=== PATIENT | male | born 1995 ===

== ENCOUNTER 2024-05-29 18:08 | Inpatient (IN) | payer SELFPAY ==
[~2024-05-29] VITALS: Ht 185.4 cm; Wt 71.4 kg
[2024-05-29] VITALS (104 sets, daily range): BP systolic 109–123; BP diastolic 73–84; PULSE 54–72; TEMP 98.7; O2SAT 38–100
--- NOTE | 2024-05-29 19:10 | NUR ---
Received report from ASHUTOSH Barragan. Patient has not arrived to unit at this time. He is still in transport from [facility].
--- NOTE | 2024-05-29 19:28 | NUR ---
Patient arrives to ICU room 6 via EMS stretcher. Patient is alert and oriented upon arrival. He is able to stand and transfer to ICU bed independently. Gait is steady. Initial vitals within normal limits. He denies pain or discomfort. Patient is pleasant. He does not appear solemn or lethargic. Denies actively having suicidal thoughts or ideation; stating he last felt suicidal last night prior to taking the tylenol. Patient reports having roughly six suicidal attempts since December. Patient stated majority of attempts were with medication overdoses, although he was not sure which medication he used each time. Patient recalls a previous attempt in which he utilized depakote. Hospitalist, Real Ley, notified of patient's arrival to unit.
[2024-05-29] MEDS ORDERED: ZOLOFT 25MG25 MG PO (19:45)
[2024-05-29] MEDS ORDERED: DESYREL 50MG50 MG PO (19:46)
[2024-05-29] MEDS ORDERED: FLEXERIL 1010 MG/TAB PO (19:46)
[2024-05-29] MEDS ORDERED: VITAMIN D250 MCG PO (19:47)
--- NOTE | 2024-05-29 20:30 | NUR ---
Patient's belongings include street clothes, a wallet, and a vape. Patient denies having cell phone, glasses, hearing aids, or dentures. Per hospitalist, Real Ley, patient may keep belongings at bedside at this time. Patient aware of hospital's no smoking policy.
[2024-05-29] MEDS ORDERED: Acetylcysteine (Injectable) 30 GM in D5W 1,000 ML IV ONE (21:15)
--- NOTE | 2024-05-29 21:16 | NUR ---
Poison control updated at this time. This RN awaiting receipt of faxed tylenol overdose treatment protocol.
[2024-05-29 21:17] LABS: BASO % 0.3 % (0.0-2.0); GRAN # 10.3 K/mm3 (1.4-6.5); GRAN % 83.7 % (42.2-75.2); HEMATOCRIT 45.7 % (42.0-52.0); LYMPH # 1.4 K/mm3 (1.2-3.4); LYMPH % 11.4 % (20.0-51.0); MEAN CELL VOLUME 84 fl (80.0-100.0); MEAN CORPUSCULAR HEMOGLOBIN 30 pg (27-31); MEAN CORPUSCULAR HGB CONC 35 g/dl (33.0-37.0); MONO # 0.5 K/mm3 (0.1-0.6); MONO % 4.2 % (1.7-9.3); PLATELET COUNT 307 K/mm3 (130-400); RED BLOOD COUNT 5.43 M/mm3 (4.20-5.60); REDCELL DISTRIBUTION WIDTH-CV 12.4 % (11.5-14.5)
[2024-05-29 21:35] LABS: ALBUMIN 4.1 g/dL (3.5-5.0); BILIRUBIN,TOTAL 2.3 mg/dL (0.2-1.2); CALCIUM 9.2 mg/dL (8.4-10.2); CREATININE, serum 0.82 mg/dL (0.72-1.25); POTASSIUM 3.6 mEq/L (3.5-4.5)
[2024-05-29 22:32] LABS: BILIRUBIN,TOTAL 2.2 mg/dL (0.2-1.2)
[2024-05-29 22:35] LABS: INR 2.1 (0.8-3.0); PROTHROMBIN TIME 22.1 SECONDS (9.7-12.8)
[2024-05-30] VITALS (878 sets, daily range): BP systolic 97–119; BP diastolic 63–82; PULSE 63–80; TEMP 98.3–99.1; O2SAT 89–100
[2024-05-30] MEDS ORDERED: Melatonin 3 MG TAB PO PRN (01:30)
[2024-05-30] MEDS ORDERED: Pantoprazole 40 MG in NS 10 ML IV ONE (04:30)
--- NOTE | 2024-05-30 04:35 | NUR ---
Patient has had difficulty sleeping throughout shift. Hospitalist, Real, notified of insomnia around 0130; orders for sleep aid were received, see EMAR. Patient finally fell asleep around 0230 but awoke at 0400 reporting substernal chest pain described as "sharp pressure." Patient also reports onset of a tension headache and that his legs are beginging to ache, stating, "I feel like my whole body is shutting down." Hospitalist notified. Orders received for STAT EKG and IV Protonix. Per hospitalist, to administer IV Protonix and assess its efficacy before receiving further orders for pain control. Real states patient likely experiencing generalized discomfort due to the effects of his tylenol overdose.
[2024-05-30 05:16] LABS: BASO # 0.1 K/mm3 (0.0-0.2); BASO % 0.5 % (0.0-2.0); EOS # 0.1 K/mm3 (0.0-0.7); GRAN # 9.8 K/mm3 (1.4-6.5); GRAN % 80.4 % (42.2-75.2); HEMATOCRIT 45.4 % (42.0-52.0); HEMOGLOBIN 15.6 g/dl (13.5-18.0); LYMPH # 1.4 K/mm3 (1.2-3.4); LYMPH % 11.5 % (20.0-51.0); MEAN CELL VOLUME 85 fl (80.0-100.0); MEAN CORPUSCULAR HEMOGLOBIN 29 pg (27-31); MEAN CORPUSCULAR HGB CONC 34 g/dl (33.0-37.0); MONO # 0.8 K/mm3 (0.1-0.6); MONO % 6.4 % (1.7-9.3); PLATELET COUNT 292 K/mm3 (130-400); RED BLOOD COUNT 5.35 M/mm3 (4.20-5.60); REDCELL DISTRIBUTION WIDTH-CV 12.5 % (11.5-14.5)
[2024-05-30 05:21] LABS: INR 2.3 (0.8-3.0); PROTHROMBIN TIME 24.4 SECONDS (9.7-12.8)
[2024-05-30 05:32] LABS: CALCIUM 8.4 mg/dL (8.4-10.2); CREATININE, serum 0.75 mg/dL (0.72-1.25); POTASSIUM 3.1 mEq/L (3.5-4.5)
[2024-05-30 05:56] LABS: ALANINE AMINOTRANSFERASE 656 U/L (0-55); AST,SGOT 427 U/L (5-34)
--- NOTE | 2024-05-30 06:10 | NUR ---
Poison control updated with this morning's lab results. No new recommendations at this time.
--- NOTE | 2024-05-30 07:00 | NUR ---
Report received from ASHUTOSH Almaraz; patient currently resting in bed with acetadote running through his peripheral IV. No other lines or tubes are in place at this time. Patient is on room air, alert and oriented, and vital signs are within normal limits this morning.
[2024-05-30] MEDS ORDERED: Influenza Virus Vaccine, Trivalent '24-25 0.5 ML SYRINGE IM SCH (09:00)
[2024-05-30] MEDS ORDERED: *Potassium Replacement Protocol MC SCH (09:45)
--- NOTE | 2024-05-30 11:09 | NUR ---
SW met with patient to complete intake/discharge planning. Patient states he lives in [facility] with friend Natalia Weir [phone] whom he states is his appointed POA. Patient is independent with ADLs and does not utilize DME nor home health services at this time. PCP is Dr. Macdonald, and pharmacy is [facility]. Patient provides he is not sure as to what his discharge plan will be at this time. SW will continue to follow. Discharge plan: home
[2024-05-30 16:32] LABS: ALBUMIN 3.6 g/dL (3.5-5.0); BILIRUBIN,TOTAL 1.2 mg/dL (0.2-1.2); CALCIUM 8.2 mg/dL (8.4-10.2); CREATININE, serum 0.81 mg/dL (0.72-1.25); POTASSIUM 3.5 mEq/L (3.5-4.5); TOTAL PROTEIN 5.8 g/dl (6.2-8.1)
--- NOTE | 2024-05-30 19:00 | NUR ---
Received report from ASHUTOSH Cline. Patient resting quietly in bed watching TV. Denies pain but reports some mild epigastric discomfort with eating. Vitals within normal limits. Acetadote continues to run according to orders in EMAR.
[2024-05-31] VITALS (921 sets, daily range): BP systolic 98–114; BP diastolic 58–79; PULSE 63–107; TEMP 98–99.6; O2SAT 87–100
[2024-05-31 04:34] LABS: BASO # 0.1 K/mm3 (0.0-0.2); BASO % 0.8 % (0.0-2.0); EOS # 0.4 K/mm3 (0.0-0.7); EOS % 4.5 % (0.0-4.0); GRAN # 6.1 K/mm3 (1.4-6.5); GRAN % 67.4 % (42.2-75.2); HEMATOCRIT 43.7 % (42.0-52.0); HEMOGLOBIN 15.3 g/dl (13.5-18.0); LYMPH # 1.6 K/mm3 (1.2-3.4); LYMPH % 17.3 % (20.0-51.0); MEAN CELL VOLUME 85 fl (80.0-100.0); MEAN CORPUSCULAR HEMOGLOBIN 30 pg (27-31); MEAN CORPUSCULAR HGB CONC 35 g/dl (33.0-37.0); MEAN PLATELET VOLUME 10.1 fl (7.4-10.4); MONO # 0.9 K/mm3 (0.1-0.6); MONO % 9.8 % (1.7-9.3); PLATELET COUNT 237 K/mm3 (130-400); RED BLOOD COUNT 5.17 M/mm3 (4.20-5.60); REDCELL DISTRIBUTION WIDTH-CV 12.6 % (11.5-14.5)
[2024-05-31 04:47] LABS: CALCIUM 8.3 mg/dL (8.4-10.2); CREATININE, serum 0.74 mg/dL (0.72-1.25); POTASSIUM 3.8 mEq/L (3.5-4.5)
[2024-05-31 05:02] LABS: INR 1.8 (0.8-3.0); PROTHROMBIN TIME 19.4 SECONDS (9.7-12.8)
--- NOTE | 2024-05-31 05:14 | NUR ---
Poison control updated with this morning's labs. Recommendations received to continue acetadote and to repeat labs around 1600 today.
[2024-05-31] MEDS ORDERED: Acetylcysteine (Injectable) 30 GM in D5W 1,000 ML IV ONE (07:30)
[2024-05-31] MEDS ORDERED: ACETYLCYSTEINE IV ONE (08:00)
[2024-05-31] MEDS ORDERED: D5W IV ONE (08:00)
[2024-05-31] MEDS ORDERED: Potassium Bicarbonate/Citrate 20 MEQ Effervescent TAB PO ONE (08:00)
--- NOTE | 2024-05-31 08:38 | NUR ---
PT IS RESTING IN BED SLEEPING. HE IS ALERT AND ORIENTED. HE IS ON ROOM AIR. HE USES THE URINAL OR THE TOILET. HE IS ON SUICIDE PRECAUTIONS A 1:1. THIS NURSE IS AT THE BEDSIDE SITTING.
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
[2024-05-31 16:23] LABS: INR 1.6 (0.8-3.0); PROTHROMBIN TIME 17.5 SECONDS (9.7-12.8)
[2024-05-31 16:31] LABS: ALANINE AMINOTRANSFERASE 2180 U/L (0-55); AST,SGOT 967 U/L (5-34)
[2024-06-01] VITALS (410 sets, daily range): BP systolic 93–111; BP diastolic 54–76; PULSE 60–86; TEMP 98–98.3; O2SAT 91–100
[2024-06-01] MEDS ORDERED: Potassium Bicarbonate/Citrate 20 MEQ Effervescent TAB PO ONE ×2 (00:30→21:15)
[2024-06-01] MEDS ORDERED: *Potassium Replacement Protocol MC SCH (00:30)
[2024-06-01 05:58] LABS: BASO % 0.5 % (0.0-2.0); EOS # 0.7 K/mm3 (0.0-0.7); EOS % 7.5 % (0.0-4.0); GRAN # 3.9 K/mm3 (1.4-6.5); GRAN % 44.7 % (42.2-75.2); HEMOGLOBIN 14.6 g/dl (13.5-18.0); LYMPH # 2.6 K/mm3 (1.2-3.4); LYMPH % 30.6 % (20.0-51.0); MEAN CELL VOLUME 85 fl (80.0-100.0); MEAN CORPUSCULAR HEMOGLOBIN 30 pg (27-31); MEAN CORPUSCULAR HGB CONC 35 g/dl (33.0-37.0); MEAN PLATELET VOLUME 10.2 fl (7.4-10.4); MONO # 1.4 K/mm3 (0.1-0.6); MONO % 16.2 % (1.7-9.3); PLATELET COUNT 215 K/mm3 (130-400); RED BLOOD COUNT 4.92 M/mm3 (4.20-5.60); REDCELL DISTRIBUTION WIDTH-CV 12.6 % (11.5-14.5)
[2024-06-01 06:11] LABS: CALCIUM 8.7 mg/dL (8.4-10.2); CREATININE, serum 0.8 mg/dL (0.72-1.25); POTASSIUM 3.7 mEq/L (3.5-4.5)
--- NOTE | 2024-06-01 07:00 | NUR ---
REPORT RECEIVED FROM ASHUTOSH WALLACE. PT RESTING IN BED, VSS. SITTER AT BEDSIDE, CALL LIGHT IN REACH.
[2024-06-01 09:15] LABS: ALANINE AMINOTRANSFERASE 1986 U/L (0-55); AST,SGOT 525 U/L (5-34)
[2024-06-01] MEDS ORDERED: ACETYLCYSTEINE IV SCH (11:00)
[2024-06-01] MEDS ORDERED: D5W IV SCH (11:00)
[2024-06-01 16:05] LABS: INR 1.4 (0.8-3.0); PROTHROMBIN TIME 15.1 SECONDS (9.7-12.8)
[2024-06-01 16:22] LABS: ALBUMIN 3.3 g/dL (3.5-5.0); BILIRUBIN,TOTAL 0.9 mg/dL (0.2-1.2); CALCIUM 9.1 mg/dL (8.4-10.2); CREATININE, serum 0.78 mg/dL (0.72-1.25); POTASSIUM 3.8 mEq/L (3.5-4.5); TOTAL PROTEIN 6.3 g/dl (6.2-8.1)
--- NOTE | 2024-06-01 19:00 | NUR ---
THIS NURSE RECIEVED REPORT FROM ASHUTOSH NEVAREZ. PATIENT IS CURRENTLY WATCHING TV IN BED. PATIENT IS IN [facility] SPIRITS AND STATES NO CONCERNS AT THIS TIME. PATIENT'S VITAL SIGNS ARE WNL. PATIENT HAS A 20G TO THE RIGHT AC WITH ACETADOTE RUNNING AT 12.5 ML/HR. NO SIGNS OF REDNESS, PHLEBITIS, OR INFILTRATION. BED IN LOW POSITION, CALL LIGHT WITHIN THE PATIENT'S REACH, SITTER AT BEDSIDE.
[2024-06-02] VITALS (500 sets, daily range): BP systolic 86–117; BP diastolic 53–74; PULSE 50–85; TEMP 97.5–98.2; O2SAT 75–100
[2024-06-02 05:16] LABS: BASO # 0.1 K/mm3 (0.0-0.2); BASO % 0.8 % (0.0-2.0); EOS # 0.7 K/mm3 (0.0-0.7); EOS % 8.7 % (0.0-4.0); GRAN # 3.6 K/mm3 (1.4-6.5); GRAN % 44.1 % (42.2-75.2); HEMATOCRIT 43.1 % (42.0-52.0); HEMOGLOBIN 14.8 g/dl (13.5-18.0); LYMPH # 2.6 K/mm3 (1.2-3.4); MEAN CELL VOLUME 86 fl (80.0-100.0); MEAN CORPUSCULAR HEMOGLOBIN 30 pg (27-31); MEAN CORPUSCULAR HGB CONC 34 g/dl (33.0-37.0); MEAN PLATELET VOLUME 10.4 fl (7.4-10.4); MONO # 1.1 K/mm3 (0.1-0.6); MONO % 13.6 % (1.7-9.3); PLATELET COUNT 237 K/mm3 (130-400); RED BLOOD COUNT 5.02 M/mm3 (4.20-5.60)
[2024-06-02 05:19] LABS: INR 1.3 (0.8-3.0); PROTHROMBIN TIME 13.5 SECONDS (9.7-12.8)
[2024-06-02 05:44] LABS: ALBUMIN 3.3 g/dL (3.5-5.0); BILIRUBIN,TOTAL 0.7 mg/dL (0.2-1.2); CALCIUM 9.5 mg/dL (8.4-10.2); CREATININE, serum 0.73 mg/dL (0.72-1.25); POTASSIUM 4.2 mEq/L (3.5-4.5); TOTAL PROTEIN 6.2 g/dl (6.2-8.1)
--- NOTE | 2024-06-02 06:30 | NUR ---
PATIENT HAD AN UNEVENTFUL NIGHT. PATIENT TALKED TO HIS MOTHER, WHO SHOWED HER SUPPORT AND LOVE, WHICH REALLY BOOSTED THE PATIENT'S MOOD. PATIENT HAS A 20G TO THE RIGHT AC, WITH ACETADOTE RUNNING AT 12.5 ML/HR. NO SIGNS OF REDNESS, PHLEBITIS, OR INFILTRATION. PATIENT HAS BEEN WALKING TO AND FROM THE BATHROOM, WITH STAND BY ASSISTANCE AND WITH A STEADY GAIT. PATIENT'S VITAL SIGNS ARE WNL, WITH A NOTED LOWER BLOOD PRESSURE. PATIENT IS CURRENTLY SLEEPING. BED IN LOW POSITION, CALL LIGHT WITHIN THE PATIENT'S REACH. SITTER AT BEDSIDE.
--- NOTE | 2024-06-02 06:30 | NUR ---
Report received from ASHUTOSH Gonzalez; patient currently resting in bed with eyes closed. Patient has acetadote running through his peripheral IV; no other lines or tubes are in place at this time. Patient's vital signs within normal limits this morning.
--- NOTE | 2024-06-02 08:53 | NUR ---
Reported off to tech from medical floor who will sit for Alhaji; reported off to ASHUTOHS Allen who will take over patient care.
--- NOTE | 2024-06-02 10:39 | NUR ---
BLACK attended clinical rounds. Patient will be medically cleared this afternoon. ASHUTOSH lAlen states she will contact [facility] to screen patient for inpt psych placement. BLACK and BLACK Cevallos met with patient after rounds and discussed plan for screening and discharge. Patient denies current SI/HI to attending. Patient voiced continued agreement for inpt psych placement. Patient stated that his friend Natalia has not visited him since he's been hospitalized and has had very limited phone contact with her. He states he has talked with his mother in [place] who is willing for patient to go to her home after discharge via bus. Patient also talked about considering [facility] and PTSD 30 day treatment programs and [facility] which is a [facility] treatment program which are all through the [place]. Patient also stated slight possibility of going to [place] or [place] to stay with [place] friends who have offered him to stay with them. Discharge plan is pending [facility] screen and patient's agreement to placement in inpt psych. Dischage plan[facility]
[2024-06-02 14:14] LABS: TSH w REFLEX 2.128 uIU/mL (0.350-4.940)
[2024-06-02 14:15] LABS: MAGNESIUM 1.9 mg/dL (1.6-2.6); PHOSPHOROUS 3.6 mg/dL (2.3-4.7)
[2024-06-02 14:24] LABS: ALCOHOL(ethanol),MEDICAL < 10 mg/dL (0-10)
[2024-06-02 17:49] LABS: URINE APPEARANCE CLEAR (CLEAR/HAZY); URINE BLOOD NEGATIVE (NEGATIVE); URINE COLOR YELLOW (YELLOW); URINE GLUCOSE NEGATIVE (NEGATIVE); URINE KETONE NEGATIVE (NEGATIVE); URINE NITRATE NEGATIVE (NEGATIVE); URINE PROTEIN(semi-quant) NEGATIVE (NEGATIVE); URINE UROBILINOGEN 0.2 E.U/dL (0.2-1.0)
[2024-06-02 17:51] LABS: COLLECTION METHOD CLEAN CATCH
[2024-06-02 18:10] LABS: TRICYCLIC ANTIDEPRESS URINE NEGATIVE (NEGATIVE)
--- NOTE | 2024-06-02 18:40 | NUR ---
Pt received as transfer from ICU at approximatley 1500. Intially 1:1 discontinued but then reinstated per request of SHY Singer. Suicide precautions in place. Pt very pleasant and cooperative. Urine and COVID sample collected and sent to lab.
[2024-06-03] VITALS (33 sets, daily range): BP systolic 94–105; BP diastolic 58–68; PULSE 60–86; TEMP 98–98.4
--- NOTE | 2024-06-03 04:21 | NUR ---
PATIENT AWAKENED THIS AM FOR VITALS SIGN CHECK WHEN ATTEMPTING TO GET TEMPERATURE RECORDING ONE CAN NOTICE PATIENT QUITE SWEATY, DIAPHRECTIC, MANDY CBG SUGAR NORM AT 94, REDUCED COVERS AND ATTEMPT TO COOL ROOM TEMP 98.1
--- NOTE | 2024-06-03 06:31 | NUR ---
report recieved from ASHUTOSH Quigley. patient resting comfortably in bed.
[2024-06-03 07:01] LABS: HEMATOCRIT 45.1 % (42.0-52.0); HEMOGLOBIN 14.9 g/dl (13.5-18.0); MEAN CELL VOLUME 88 fl (80.0-100.0); MEAN CORPUSCULAR HEMOGLOBIN 29 pg (27-31); MEAN CORPUSCULAR HGB CONC 33 g/dl (33.0-37.0); MEAN PLATELET VOLUME 10.3 fl (7.4-10.4); PLATELET COUNT 310 K/mm3 (130-400); RED BLOOD COUNT 5.11 M/mm3 (4.20-5.60); REDCELL DISTRIBUTION WIDTH-CV 13.2 % (11.5-14.5)
[2024-06-03 07:08] LABS: INR 1.1 (0.8-3.0); PROTHROMBIN TIME 11.4 SECONDS (9.7-12.8)
[2024-06-03 07:21] LABS: ALBUMIN 3.7 g/dL (3.5-5.0); BILIRUBIN,TOTAL 0.6 mg/dL (0.2-1.2); CREATININE, serum 0.86 mg/dL (0.72-1.25); POTASSIUM 4.5 mEq/L (3.5-4.5); TOTAL PROTEIN 6.8 g/dl (6.2-8.1)
[2024-06-03 07:44] LABS: EOSINOPHIL 10 % (0-4); LYMPHOCYTE 34 % (20.0-51.0); NEUTROPHILS 49 % (42.0-75.2)
[2024-06-03 07:45] LABS: PLATELET ESTIMATE NORMAL (NORMAL)
--- NOTE | 2024-06-03 08:31 | NUR ---
pt awake and resting in bed, breakfast tray at bedside table. vss. pt denies needs at this time.
--- NOTE | 2024-06-03 15:01 | NUR ---
BLACK informed by attending that [facility] cannot accept patient due to labs still at critical level. Dr. Ayoub awaiting contact from [facility] [facility] regarding possibilty of patient being admitted to their acute care hospital until medically stable for inpt psych placement. BLACK will continue to follow. Discharge plan: inpt psych placement at [place]
--- NOTE | 2024-06-03 20:05 | NUR ---
PATIENT SITTING UP IN BED WITH TV ON WITH NO FAMILY PRESENT WITH NO ACUTE DISTRESS NOTED. PATIENT ON ROOM AIR. MAUDE IN TO SEE PATIENT AT THIS TIME. PATIENT C/O INT TO RIGHT AC HURTING. PATIENT AGREED TO HAVE NEW IV PLACED. INT TO RIGHT HAND OBTAINED TIMES 2 STICKS. PATIENT TOLERATED WELL. PATIENT REQUESTED ICE CREAM AND PEPSI. ICE CREAM, PEPSI, AND CUP OF ICE GIVEN. ALL NEEDS MET. BED IN LOW POSITION WITH WHEELS LOCKED WITH RAILS UP X2 AND CALL LIGHT WITHIN REACH.
--- NOTE | 2024-06-03 20:20 | NUR ---
Data: Patient accepted spiritual care visit offered to him while Configuration Technician was in the hospital and available in the evening. Patient is a , so is Configuration Technician. Patient initially admitted to this hospital through ICU earlier in the week because of a suicide attempt. Assessment: Patient is grieving the loss of an important friendship. Patient desires to go to the inpatient treatment facility at the [facility] in [place]. Plan of Care: Configuration Technician provided supportive listening from a [place]'s perspective. Configuration Technician affirmed Patient's loss and his desire to attend treatment. Chaplains will remain available as needed/requested while Patient is admitted to this hospital.
[2024-06-04] VITALS: BP_SYST 105
[2024-06-04 04:00] VITALS: BP 95/56; PULSE 72; TEMP 97.9
[2024-06-04 06:48] LABS: ALBUMIN 3.5 g/dL (3.5-5.0); BILIRUBIN,TOTAL 0.4 mg/dL (0.2-1.2); CALCIUM 9.5 mg/dL (8.4-10.2); CREATININE, serum 0.75 mg/dL (0.72-1.25); TOTAL PROTEIN 6.6 g/dl (6.2-8.1)
[2024-06-04 07:19] VITALS: BP 98/59; PULSE 56; TEMP 97.7
[2024-06-04 08:20] VITALS: BP_SYST 98
--- NOTE | 2024-06-04 09:01 | NUR ---
PATIENT RESTING IN BED WITH EYES CLOSED. AROUSES TO VOICE, ALERT AND ORIENTED. DENIES PAIN OR DISCOMFORT. VSS. CALL LIGHT WITHIN REACH.
[2024-06-04 11:40] LABS: ALBUMIN 3.9 g/dL (3.5-5.0); BILIRUBIN,TOTAL 0.6 mg/dL (0.2-1.2); CALCIUM 10.2 mg/dL (8.4-10.2); CREATININE, serum 0.85 mg/dL (0.72-1.25); TOTAL PROTEIN 7.3 g/dl (6.2-8.1)
[2024-06-04 11:44] VITALS: BP 99/64; PULSE 70; TEMP 97.8
[2024-06-04 12:18] VITALS: BP_SYST 99
--- NOTE | 2024-06-04 12:51 | NUR ---
call circuit worker was informed during rounding pt wanted information or the [place] phone number to contact to get established with [facility] after his inpatient psych stay. SW advised she will look into this and reach [facility] to [facility]. He reports to talk with BLACK Kovacs at the [place] in [place]. BLACK called [facility] BL[facility] Solis at the [facility] for assistance. She reports pt is primarily seen by [facility] BLACK Han, but has a homeless and mental health coordinator. BLACK inquired about the [facility] and if anything is needed as this hospital was looking to transfer him anyways. She reports as of 12pm, pt was accepted at the [facility] unit and will be stablized, then receive the [facility] referral. Nothing needed from this SW at this time. BLACK spoke with [employer] Saw Operator, Alley who reports secure transport will arrive at 2pm. BLACK called BLACK Steward back and informed her of this to follow pt. Discharge Plan: [facility] psych unit
--- NOTE | 2024-06-04 14:03 | NUR ---
PATIENT PICKED UP FROM [employer]. IV TO LEFT WRIST DISCONTINUED. DENIES NEEDS OR CONCERNS. REPORT CALLED TO OR INPATIENT UNIT NURSE. ALL QUESTIONS ANSWERED.
== END 2024-06-04 14:04 | disposition psychiatric hospital, planned readmission (93) | DRG 918 ==
LOC: MEDICAL 18:08 → ICU 19:28 → MEDICAL 06-01 14:35 → ICU 06-01 14:35 → MEDICAL 06-02 15:16
PROVIDERS: Internal Medicine; Physician Assistant; ADMIT Internal Medicine
DX: T39.1X2A Poisoning by 4-Aminophenol derivatives, intentional self-harm, initial encounter (principal); K71.9 Toxic liver disease, unspecified; F43.10 Post-traumatic stress disorder, unspecified; F32.9 Major depressive disorder, single episode, unspecified; K71.2 Toxic liver disease with acute hepatitis; R74.01 Elevation of levels of liver transaminase levels; F32.A Depression, unspecified; Z86.59 Personal history of other mental and behavioral disorders; Z91.51 Personal history of suicidal behavior; Z79.899 Other long term (current) drug therapy; Z23 Encounter for immunization
CPT/HCPCS: J0132; J0780; J2470; J7070; Q3014